=== PATIENT | female | born 1990 | race Caucasian/White ===

== ENCOUNTER 2017-02-03 03:26 | Emergency (ER) | payer OTHER ==
[~2017-02-03] VITALS: Ht 170.2 cm; Wt 50.0 kg
[2017-02-03 03:28] VITALS: O2SAT 100
[2017-02-03] MEDS ORDERED: DIPHTH/TETANUS/ACEL PERTUSSIS (BOOSTER) 0.5 ML VIAL/PFS IM ONE ×2 (03:32→03:49)
[2017-02-03] MEDS ORDERED: ceFAZolin 2 GM PREMIX 50 ML ONE (03:32)
[2017-02-03] MEDS ORDERED: ceFAZolin 2 GM PREMIX 50 ML IV STA (03:50)
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
[2017-02-03] MEDS ORDERED: IOHEXOL 350 MG/ML 10 ML VIAL (for RAD DIAG) IV ONE (03:52)
[2017-02-03 03:53] LABS: AUTOMATED NEUTROPHIL # 3.1 TH/MM3 (1.8-7.7); BASOPHIL # 0.1 TH/MM3 (0-0.2); BASOPHIL % 0.9 % (0.0-2.0); EOSINOPHIL # 0.3 TH/MM3 (0-0.4); EOSINOPHIL % 3.3 % (0.0-4.0); HEMATOCRIT 37.7 % (35.0-46.0); LYMPH % 56.9 % (9.0-44.0); LYMPHOCYTE # 5.2 TH/MM3 (1.0-4.8); MEAN CELL VOLUME 86.4 FL (80.0-100.0); MEAN CORPUSCULAR HEMOGLOBIN 28.7 PG (27.0-34.0); MEAN CORPUSCULAR HGB CONC 33.2 % (32.0-36.0); MONO % 5.2 % (0.0-8.0); NEUT % 33.7 % (16.0-70.0); PLATELET COUNT 282 TH/MM3 (150-450); RED BLOOD COUNT 4.36 MIL/MM3 (4.00-5.30); RED CELL DISTRIBUTION WIDTH 14.1 % (11.6-17.2); WHITE BLOOD COUNT 9.1 TH/MM3 (4.0-11.0)
[2017-02-03 03:54] LABS: HEMO FLAGS AUTO DIFF
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
[2017-02-03 03:55] LABS: I-STAT POTASSIUM 3.4 MMOL/L (3.5-4.9); I-STAT SODIUM 144 MMOL/L (138-146)
[2017-02-03] MEDS ORDERED: SODIUM CHLOR 0.9% 1000 ML INJ 1,000 ML IV ONE (04:00)
[2017-02-03] MEDS ORDERED: MORPHINE SULFATE 4 MG/ML INJ IV ONE (04:00)
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
[2017-02-03 04:10] LABS: PROTHROMBIN TIME - PATIENT 10.6 SEC (9.8-11.6)
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
[2017-02-03 04:13] LABS: BETA HCG QUANT LESS THAN 1 MIU/ML (0-5)
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
[2017-02-03 04:21] LABS: ATYPICAL LYMPHOCYTES 15 % (0-0); BASOPHILS 2 % (0-2); EOSINOPHILS 2 % (0-4); METAMYELOCYTES 1 % (0-1); POLYS (SEG NEUTROPHILS) 32 % (16-70); SCAN/DIFF FINAL DIFF MANUAL; WBC DIFF SAMPLE 100
[2017-02-03 04:22] LABS: PLATELET ESTIMATE SMEAR NORMAL (NORMAL); PLATELET MORPHOLOGY NORMAL (NORMAL)
[2017-02-03] MEDS ORDERED: CYCL5TAB PO ×2 (04:44→05:35)
[2017-02-03] MEDS ORDERED: IBUP400T20 PO ×2 (04:44→05:35)
[2017-02-03] MEDS ORDERED: ASPI81CH CHEW (05:07)
[2017-02-03] MEDS ORDERED: FLINT2 CHEW (05:07)
[2017-02-03] MEDS ORDERED: CEPH-460 PO (05:34)
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
== END 2017-02-03 05:41 | disposition home or self-care (01) ==
LOC: NEPI 03:26 → EDBD 03:26 → NEPE 05:41
DX: S09.90XA Unspecified injury of head, initial encounter (principal); S70.211A Abrasion, right hip, initial encounter; S00.81XA Abrasion of other part of head, initial encounter; D68.61 Antiphospholipid syndrome; F10.129 Alcohol abuse with intoxication, unspecified; N83.201 Unspecified ovarian cyst, right side; M79.1 Myalgia; V49.40XA Driver injured in collision with unspecified motor vehicles in traffic accident, initial encounter; Z23 Encounter for immunization
CPT/HCPCS: 70450; 70486; 71010; 71260; 72125; 72170; 74177; 80307; 82435; 82565; 82947; 84132; 84295; 84520; 84702; 85007; 85027; 85384; 85610; 85730; 86850; 86900; 86901; 90471; 90715; 96374; 99285; 99291; J0690; Q9967; G0390

== ENCOUNTER 2017-06-17 13:53 | Emergency (ER) | payer OTHER ==
[~2017-06-17] VITALS: Ht 170.2 cm; Wt 49.6 kg
[~2017-06-17 13:53] MED LIST: ASPI-516 CHEW; CEPH-460 PO; CYCL5TAB PO; FLINT2 CHEW; IBUP1TAB5 PO
[2017-06-17 14:12] VITALS: BP 114/62; PULSE 100; RESP 16; TEMP 98.5; O2SAT 96
[2017-06-17] MEDS ORDERED: SODIUM CHLOR 0.9% 1000 ML INJ 1,000 ML IV ONE (14:24)
[2017-06-17] MEDS ORDERED: SODIUM CHLORIDE 0.9% FLUSH 10 ML FLUSH IVF PRN (14:30)
[2017-06-17] MEDS ORDERED: HYDR-3535 PO (14:33)
--- NOTE | 2017-06-17 14:33 | PD ---
HPI Chief Complaint: Abdominal Pain Time Seen by Provider: 14:24 Travel History International Travel<30 days: No Contact w/Intl Traveler<30days: No Traveled to known affect area: No History of Present Illness HPI the patient is a 27-year-old female who presents emergency department for lower abdominal discomfort in . The patient is with a history of antiphospholipid syndrome. The patient has been on Lovenox during previous pregnancies, is currently taking aspirin. The patient states she recently moved to local area was going to follow-up with Dr. Eaton, however, she is unable to see her rent collector until she has Medicaid. The patient denies any current vaginal bleeding, does note mild discharge which is creamy white, thick, without any foul odor. She also complains of mild dysuria without any frequency or urgency. She denies any vaginal bleeding or significant nausea, vomiting, or cramping type pain. The patient's symptoms are mild to moderate, possibly exacerbated by underlying , there are no current alleviating factors. The patient's last menstrual cycle was May 01, 2017, she is on a 39 day cycle history per her report. [facility] Past Medical History Narrative Medical Antiphospholipid syndrome Past Surgical History Narrative Surgical Noncontributory Social History Alcohol Use: Yes (3-4 times per week she will drink alcohol in small amount) Tobacco Use: Yes (one half pack per day) Substance Use: Yes (marijuana) Allergies-Medications (Allergen,Severity, Reaction): Coded Allergies: No Known Allergies (Unverified Adverse Reaction, Unknown, 06/17/17) Reported Meds & Prescriptions Reported Meds & Active Scripts Active Reported Lortab (Hydrocodone-Acetaminophen) 10-325 Mg Tab 1 Tab PO Q8HR PRN Aspirin 81 Mg Chew 81 Mg CHEW DAILY Review of Systems Except as stated in HPI: all other systems reviewed are Neg General / Constitutional: No: Fever Cardiovascular: No: Chest Pain or Discomfort Respiratory: No: Shortness of Breath Gastrointestinal: No: Nausea, Vomiting, Abdominal Pain Genitourinary: Positive: Dysuria, Pelvic Pain, Discharge, No: Urgency, Frequency, Vaginal Bleeding Neurologic: No: Dizziness Physical Exam Narrative GENERAL: Awake, alert, pleasant 27-year-old female who appears her stated age and is in no acute respiratory distress. SKIN: Focused skin assessment warm/dry. HEAD: Atraumatic. Normocephalic. EYES: No injection or drainage. ENT: No nasal bleeding or discharge. Mucous membranes pink and moist. NECK: Trachea midline. No JVD. GASTROINTESTINAL: Abdomen soft, non-tender, nondistended. No suprapubic tenderness. Back: Mild right sided CVA tenderness. Genitourinary: The exam was performed in the presence of a female nurse. External examination reveals no rashes or lesions. Speculum examination reveals creamy, thick white vaginal discharge in the vaginal vault. Cervix is closed. MUSCULOSKELETAL: No obvious deformities. No clubbing. No cyanosis. No edema. NEUROLOGICAL: Awake and alert. No obvious cranial nerve deficits. Motor grossly within normal limits. Normal speech. PSYCHIATRIC: Appropriate mood and affect; insight and judgment normal. Data Data Last Documented VS Vital Signs Date Time Temp Pulse Resp B/P (MAP) Pulse Ox O2 Delivery O2 Flow Rate FiO2 06/17/17 14:49 (79) 06/17/17 14:12 98.5 100 16 96 Room Air Orders Orders Beta Hcg (Quant/Titer) (06/17/17 14:24) Wet Prep Profile (06/17/17 14:24) Urinalysis - C+S If Indicated (06/17/17 14:24) Iv Access Insert/Monitor (06/17/17 14:24) Sodium Chloride 0.9% Flush (Ns Flush) (06/17/17 14:30) Sodium Chlor 0.9% 1000 Ml Inj (Ns 1000 M (06/17/17 14:24) Ed Urine Pregnancytest Poc (06/17/17 14:24) Urine Culture (06/17/17 14:25) Gc And Chlamydia Pcr (06/17/17 14:52) Ed Discharge Order (06/17/17 15:18) Labs Laboratory Tests Test 06/17/17 14:25 06/17/17 14:40 06/17/17 15:05 Urine Collection Type CLEAN CATCH Urine Color YELLOW Urine Turbidity CLEAR Urine pH 5.5 Urine Specific [place] 1.026 Urine Protein 100 mg/dL Urine Glucose (UA) NEG mg/dL Urine Ketones NEG mg/dL Urine Occult Blood NEG Urine Nitrite POS Urine Bilirubin NEG Urine Leukocyte Esterase NEG Urine RBC 0-3 /hpf Urine WBC 3-5 /hpf Urine Squamous Epithelial Cells 6-8 /hpf Urine Bacteria MOD /hpf Urine Mucus MOD /lpf Microscopic Urinalysis Comment CULTURE INDICATED Urine Collection Time 14:25 Human Chorionic Gonadotropin, Quant LESS THAN 1 MIU/ML Clue Cells (Wet Prep) NONE SEEN Vaginal Trichomonas (Wet Prep) NONE SEEN Vaginal Yeast (Wet Prep) NONE SEEN MDM Medical Decision Making Medical Screen Exam Complete: Yes Emergency Medical Condition: Yes Medical Record Reviewed: Yes Interpretation(s) Laboratory Tests Test 06/17/17 14:25 06/17/17 14:40 06/17/17 15:05 Urine Collection Type CLEAN CATCH Urine Color YELLOW Urine Turbidity CLEAR Urine pH 5.5 Urine Specific [place] 1.026 Urine Protein 100 mg/dL Urine Glucose (UA) NEG mg/dL Urine Ketones NEG mg/dL Urine Occult Blood NEG Urine Nitrite POS Urine Bilirubin NEG Urine Leukocyte Esterase NEG Urine RBC 0-3 /hpf Urine WBC 3-5 /hpf Urine Squamous Epithelial Cells 6-8 /hpf Urine Bacteria MOD /hpf Urine Mucus MOD /lpf Microscopic Urinalysis Comment CULTURE INDICATED Urine Collection Time 14:25 Human Chorionic Gonadotropin, Quant LESS THAN 1 MIU/ML Clue Cells (Wet Prep) NONE SEEN Vaginal Trichomonas (Wet Prep) NONE SEEN Vaginal Yeast (Wet Prep) NONE SEEN Differential Diagnosis Differential diagnosis includes threatened AB, incomplete AB, normal , ectopic , UTI, vaginitis, cervicitis, PID, BV, Trichomonas. Narrative Course UA bedside test was obtained. UA was sent to lab. Quantitative beta hCG was sent to lab. A pelvic exam was completed in the presence of a female nurse, wet prep was sent to lab. Ultrasound was ordered to rule out ectopic . The patient's wet prep is negative. UA does have nitrites, bacteria , but no wbc's. We'll cover referred cystitis with Bactrim twice a day, gonorrhea and chlamydia are pending. Beta hCG is less than 1, patient is not . She is advised to follow-up with a field irrigation worker and return if symptoms worsen or progress. Diagnosis Primary Impression: Cystitis Patient Instructions: General Instructions Additional Instructions: Medication as directed. Follow-up with your primary physician. Return if symptoms worsen or progress. Follow-up with a field irrigation worker. Med/Other Pt SpecificInfo: Prescription(s) given Scripts Sulfamethoxazole-Trimethoprim (Bactrim DS) 800-160 Mg Tab 1 TAB PO BID for Infection, #6 TAB 0 Refills Prov: Reji Clifford MD 06/17/17 Disposition: 01 DISCHARGE HOME Condition: Stable Reji Clifford MD Jun 17, 2017 14:33
[2017-06-17 14:40] LABS: BLOOD, URINE NEG (NEG); GLUCOSE,URINE NEG (NEG); KETONE, URINE NEG (NEG); NITRITE,URINE POS (NEG); PH, URINE 5.5 (5.0-8.5)
[2017-06-17 14:51] LABS: METHOD OF COLLECTION CLEAN CATCH; MUCUS URINE MOD /lpf (OCC); RBC, URINE 0-3 /hpf (0-3); URINE COLOR YELLOW (YELLW/STRAW)
[2017-06-17 14:52] LABS: BACTERIA, URINE MOD /hpf; COMMENT (UR) CULTURE INDICATED; CULTURE IF INDICATED CULTURE INDICATED
[2017-06-17 15:11] LABS: BETA HCG QUANT LESS THAN 1 MIU/ML (0-5)
[2017-06-17] MEDS ORDERED: BACT800T5 PO (15:20)
[2017-06-17 15:30] VITALS: BP 100/65
[2017-06-17 20:02] LABS: CHLAMYDIA PCR NOT DETECTED (NOT DETECT); NEISSERIA PCR NOT DETECTED (NOT DETECT)
== END 2017-06-17 15:45 | disposition home or self-care (01) ==
LOC: PHED 13:53
DX: O23.10 Infections of bladder in pregnancy, unspecified trimester (principal); B96.20 Unspecified Escherichia coli [E. coli] as the cause of diseases classified elsewhere; O99.119 Other diseases of the blood and blood-forming organs and certain disorders involving the immune mechanism complicating pregnancy, unspecified trimester; D68.61 Antiphospholipid syndrome; O99.330 Smoking (tobacco) complicating pregnancy, unspecified trimester; F17.200 Nicotine dependence, unspecified, uncomplicated; Z3A.00 Weeks of gestation of pregnancy not specified
CPT/HCPCS: 81001; 84702; 84703; 87077; 87086; 87186; 87210; 87491; 87591; 96360; 99284; J7030